=== PATIENT | male | born 1965 | race Caucasian/White ===

== ENCOUNTER 2022-07-24 05:29 | Emergency (ER) | payer MEDICAID, MEDICARE, OTHER ==
[~2022-07-24] VITALS: Ht 167.6 cm; Wt 81.8 kg
[~2022-07-24 05:29] MED LIST: LACO50TA2 PO; LEVE500T20 PO; LISI10TA24 PO; METO-408 PO; MIRT-89 PO; OMEP20CA12 PO; PHEN60TA16 PO
[2022-07-24 06:18] LABS: COVID AG,FIA SOURCE NASAL SWAB
[2022-07-24] MEDS ORDERED: PHEN30TA50 PO (06:26)
[2022-07-24] MEDS ORDERED: ESCI-8 PO (06:26)
[2022-07-24] MEDS ORDERED: MONT-35 PO (06:26)
[2022-07-24] MEDS ORDERED: LACO100 PO (06:26)
[2022-07-24] MEDS ORDERED: ALEN70TA65 PO (06:26)
[2022-07-24 06:48] LABS: INFLUENZA TYPE A NEGATIVE FOR TYPE A (NEGATIVE); INFLUENZA TYPE B NEGATIVE FOR TYPE B (NEGATIVE)
[2022-07-24 09:18] VITALS: BP 124/79
[2022-07-24] MEDS ORDERED: BENZ-70 PO (10:04)
[2022-07-24] MEDS ORDERED: IBUP-1492 PO (10:04)
== END 2022-07-24 10:21 | disposition home or self-care (01) ==
LOC: EMS 05:31
DX: J06.9 Acute upper respiratory infection, unspecified (principal); I10 Essential (primary) hypertension; Z20.822 Contact with and (suspected) exposure to COVID-19
CPT/HCPCS: 71045; 87804; 99284